=== PATIENT | female | born 1990 | race Caucasian/White ===

== ENCOUNTER 2017-08-17 13:56 | Emergency (ER) | payer OTHER ==
[~2017-08-17] VITALS: Ht 160 cm; Wt 74.8 kg
[2017-08-17 14:06] VITALS: BP 121/73
[2017-08-17] MEDS ORDERED: BACTRIM DS TAB1 EACH PO (14:47)
== END 2017-08-17 14:51 | disposition home or self-care (01) ==
LOC: ER 13:56
DX: L05.01 Pilonidal cyst with abscess (principal)

== ENCOUNTER 2021-05-23 22:34 | Emergency (ER) | payer OTHER ==
[~2021-05-23] VITALS: Ht 160 cm; Wt 81.7 kg
[~2021-05-23 22:34] MED LIST: BACTRIM DS TAB1 EACH PO
[2021-05-23 22:55] VITALS: BP 113/76
[2021-05-23] MEDS ORDERED: ALKA-SELTZER O1 EACH PO (22:59)
== END 2021-05-24 00:37 | disposition left against medical advice (07) ==
LOC: ER 22:34
DX: Z00.8 Encounter for other general examination (principal); Z53.21 Procedure and treatment not carried out due to patient leaving prior to being seen by health care provider